=== PATIENT | female | born 1995 | race African-American/Black ===

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

== ENCOUNTER 2017-06-28 23:19 | Emergency (ER) | payer OTHER ==
[~2017-06-28] VITALS: Ht 165.1 cm; Wt 94.9 kg
[~2017-06-28 23:19] MED LIST changes: +DOCUSATE SODIU100 MG PO; +FERROCITE324 MG PO; +IBUPROFEN800 MG PO
[2017-06-29] MEDS ORDERED: FLEXERIL10 MG PO (01:32)
[2017-06-29] MEDS ORDERED: MOTRIN800 MG PO (01:32)
[2017-06-29 02:02] VITALS: BP 137/94
== END 2017-06-29 02:03 | disposition home or self-care (01) ==
LOC: EME 23:19
DX: S63.501A Unspecified sprain of right wrist, initial encounter (principal); S80.02XA Contusion of left knee, initial encounter; S30.1XXA Contusion of abdominal wall, initial encounter; S90.414A Abrasion, right lesser toe(s), initial encounter; S10.91XA Abrasion of unspecified part of neck, initial encounter; M25.531 Pain in right wrist; M79.644 Pain in right finger(s); Y04.2XXA Assault by strike against or bumped into by another person, initial encounter; Y92.009 Unspecified place in unspecified non-institutional (private) residence as the place of occurrence of the external cause
CPT/HCPCS: 71020; 72050; 73110; 73140; 73564; 73660; 99281; 99284; J1885

== ENCOUNTER 2017-10-26 18:25 | Emergency (ER) | payer OTHER ==
[~2017-10-26] VITALS: Ht 165.1 cm; Wt 105.4 kg
[~2017-10-26 18:25] MED LIST changes: +FLEXERIL10 MG PO; +MOTRIN800 MG PO
[2017-10-26 19:41] VITALS: BP 120/65
[2017-10-30] MEDS ORDERED: PRENATAL TABLE1 EAC3 PO (14:06)
== END 2017-10-26 20:00 | disposition home or self-care (01) ==
LOC: EME 18:25
DX: S09.90XA Unspecified injury of head, initial encounter (principal); Y04.2XXA Assault by strike against or bumped into by another person, initial encounter; Z33.1 Pregnant state, incidental
CPT/HCPCS: 99281; 99283

== ENCOUNTER → 2017-10-30 | Outpatient (CLI) | payer OTHER ==
[~2017-10-30] VITALS: Ht 167.6 cm; Wt 94.0 kg
[~2017-10-30] MED LIST changes: +PRENATAL TABLE1 EAC3 PO
[2017-10-30 14:10] VITALS: BP 124/60
== END | disposition home or self-care (01) ==
LOC: IVINF 10-26 17:30
DX: O99.89 Other specified diseases and conditions complicating pregnancy, childbirth and the puerperium (principal); N93.9 Abnormal uterine and vaginal bleeding, unspecified; Z3A.00 Weeks of gestation of pregnancy not specified
CPT/HCPCS: 96372; J2790

== ENCOUNTER → 2018-03-30 | Outpatient (CLI) | payer OTHER ==
[~2018-03-30] VITALS: Ht 167.6 cm; Wt 96.3 kg
[2018-03-30 13:01] VITALS: BP 110/61
== END | disposition home or self-care (01) ==
LOC: IVINF 12:36
DX: Z34.80 Encounter for supervision of other normal pregnancy, unspecified trimester (principal); Z31.82 Encounter for Rh incompatibility status; Z3A.00 Weeks of gestation of pregnancy not specified; Z67.41 Type O blood, Rh negative
CPT/HCPCS: 96372; J2790